=== PATIENT | female | born 1990 | race African-American/Black ===

== ENCOUNTER 2016-12-04 13:19 | Emergency (ER) | payer SELFPAY ==
[~2016-12-04] VITALS: Ht 157.5 cm; Wt 120.0 kg
[2016-12-04 13:23] VITALS: BP 136/81; PULSE 88; RESP 16; TEMP 98.1; O2SAT 97
--- NOTE | 2016-12-04 13:54 | PD ---
HPI Chief Complaint: ENT Complaint Time Seen by Provider: 13:45 Travel History International Travel<30 days: No Contact w/Intl Traveler<30days: No Traveled to known affect area: No History of Present Illness HPI 25-year-old female presents to the emergency Department with complaint of decreased hearing and crackling sound in her left ear since Friday. On November 12 [address] seen at [facility] and cerumen impaction was removed and she was treated for otitis media. Reports completing the full course of antibiotics and eardrops prescribed. Denies ear pain, drainage. Says her symptoms are annoying. Denies cough, nasal congestion, fever, chills. Reports a prickly sensation to the left side of her throat when she swallows. Otherwise denies sore throat. Has no other medical complaints. Has not tried any medications or treatments to be her symptoms. No known relieving or aggravating factors. No other modifying factors or associated signs and symptoms. History Past Medical Histgory LMP: NOV 2016 Review of Systems Except as stated in HPI: all other systems reviewed are Neg Physical Exam Narrative GENERAL: Well-nourished, well-developed female patient, in no acute distress SKIN: Warm and dry. No rash. HEAD: Atraumatic. Normocephalic. EYES: Pupils equal and round at 3 mm with brisk reaction. No scleral icterus. No injection or drainage. PERRLA. ENT: Mucosa pink and moist. Oropharynx without edema, erythema or exudates. No uvular edema. No uvular, palatal, or tonsillar deviation. Airway patent. EARS: Bilateral pinnae and external canals appear within normal limits. Bilateral tympanic membranes without erythema, dullness or perforation. NECK: Trachea midline. No lymphadenopathy. CARDIOVASCULAR: Regular rate and rhythm. No murmur appreciated. RESPIRATORY: No accessory muscle use. Clear to auscultation. Breath sounds equal bilaterally. GASTROINTESTINAL: Abdomen soft, non-tender, nondistended. Hepatic and splenic margins not palpable. Bowel sounds are active 4 quadrants. MUSCULOSKELETAL: No obvious deformities. No clubbing. No cyanosis. No edema. NEUROLOGICAL: Awake and alert. Oriented 3. No obvious cranial nerve deficits. Motor grossly within normal limits. Normal speech. Moves all extremities. 5/5 strength to all extremities. PSYCHIATRIC: Appropriate mood and affect; insight and judgment normal. Data Data Last Documented VS Vital Signs Date Time Temp Pulse Resp B/P Pulse Ox O2 Delivery O2 Flow Rate FiO2 12/04/16 13:23 98.1 88 16 136/81 97 MDM Medical Screen Exam Complete: Yes Emergency Medical Condition: No Differential Diagnosis Cerumen impaction, foreign body, otitis media, otitis externa Narrative Course 25-year-old female with unremarkable physical exam. She is complaining of decreased hearing and crackling in her left ear since Friday. On November 12 [address] seen at [facility] and the cerumen impaction was removed and she was treated for otitis media. The left ear and tympanic membrane are without signs of infection or perforation. Instructed patient to follow up with primary care provider and ENT as needed. Instructed patient to try over- the-counter antihistamines or decongestants as directed and as needed for symptom management. Vital signs are stable and the patient is stable for outpatient follow-up and treatment. The patient has no urgent or emergent medical complaints. There is no emergent or urgent medical need at this time. I instructed the patient to follow up with their primary care provider. A medical screening exam was performed: At the time of evaluation the presenting medical condition was determined not to be of an emergent nature. The patient was given the option of receiving additional care, but declined. Patient was given options for additional community resources from which to obtain care. The Patient Has Been advised to seek medical attention for their presenting complaint. The patient has been advised to return to the ER at any time if an emergent condition develops. Primary Impression: Encounter for medical screening examination Condition: Stable Frida Garay Dec 04, 2016 13:54
== END 2016-12-04 14:01 | disposition left against medical advice (07) ==
LOC: NEPB 13:19
DX: R20.2 Paresthesia of skin (principal)
CPT/HCPCS: 99281